=== PATIENT | female | born 1940 | race Caucasian/White ===

== ENCOUNTER 2020-04-21 18:48 | Emergency (ER) | payer MEDICARE ==
[2020-04-21] MEDS ORDERED: NORCO 5-325 TA1 EACH PO (22:30)
[2020-04-21] MEDS ORDERED: ANTIVERT12.5 MG PO (22:30)
[2020-04-21] MEDS ORDERED: ONDANSETRON ODT4 MG SL (22:30)
[2020-04-21] MEDS ORDERED: MOBIC7.5 MG PO (22:30)
== END 2020-04-21 22:42 | disposition home or self-care (01) ==
LOC: FER 18:48
DX: S42.031A Displaced fracture of lateral end of right clavicle, initial encounter for closed fracture (principal); I10 Essential (primary) hypertension; K21.9 Gastro-esophageal reflux disease without esophagitis; Z88.1 Allergy status to other antibiotic agents; Z88.2 Allergy status to sulfonamides; W19.XXXA Unspecified fall, initial encounter
CPT/HCPCS: 73030; 73630; 96374; 96375; J1170; J1885; J2405